=== PATIENT | male | born 2000 | race Caucasian/White ===

== ENCOUNTER 2024-06-29 11:46 | Emergency (ER) | payer SELFPAY ==
[2024-06-29] VITALS (26 sets, daily range): BP systolic 105–134; BP diastolic 50–73; PULSE 67–102; RESP 14–23; TEMP 36.4; O2SAT 94–100
--- NOTE | 2024-06-29 14:30 | ED.ALLEREA ---
HPI - Allergic Reaction General Chief complaint: Allergic Reaction Stated complaint: Allergic reaction x 9 days Time Seen by Provider: 06/29/24 14:23 History of Present Illness HPI narrative: Pt had sushi 9 days ago for first time and developed hivesw after that that have persisted. Pt has tried benadryl, then went to [facility] and got oral steroids, benadryl and pepcid with no improvement. Pt denies SOB or throat swelling. Related Data Allergies Allergy/AdvReac Type Severity Reaction Status Date / Time Unable to Assess Allergy Verified 06/29/24 12:18 Review of Systems Review of Systems: All systems reviewed & are unremarkable except as noted in HPI and below Exam Const: General: healthy appearing and no acute distress Nutritional Appearance: well nourished Orientation/consciousness: patient oriented x3 Limitations: no limitations HENMT: Head: normal to inspection Mouth: Yes Normal oral and palatal mucosa present Throat: posterior oropharynx normal Resp: Effort & Inspection: normal respiratory effort Auscultation: clear to auscultation bilaterally Cardio: Rate: regular rate Rhythm: regular rhythm GI: GI Palp: Yes Soft to palpation and No Tenderness to palpation present (GI) Auscultation: normal bowel sounds Back/Spine/Pelvis: Back: no CVA tenderness Skin: Other: hives over trunk neck and extremities Neuro: General: patient oriented x3, moves all extremities, no meningeal signs and no focal motor deficits Extrem: General: normal to inspection and no clubbing, cyanosis or edema Psych: Mental Status: mental status grossly normal Affect: normal affect Attitude: cooperative Course Vital Signs Vital signs: Vital Signs Temperature 97.6 F 06/29/24 11:58 Pulse Rate 102 H 06/29/24 11:58 Respiratory Rate 16 06/29/24 11:58 Blood Pressure 134/73 06/29/24 11:58 Pulse Oximetry 95 06/29/24 11:58 Oxygen Delivery Room Air 06/29/24 11:58 Temperature 97.6 F 06/29/24 11:58 Pulse Rate 75 06/29/24 17:00 Respiratory Rate 17 06/29/24 17:00 Blood Pressure 111/55 L 06/29/24 16:16 Pulse Oximetry 98 06/29/24 17:00 Oxygen Delivery Room Air 06/29/24 11:58 MDM - Allergic Reaction MDM Narrative Medical decision making narrative: Pt has hives for 9 days after eating sushi, pt has received oral meds at [facility] with no relief. will try IV benadryl, pepcid, and solumedrol and epi. hives are less erythematous but still present. Pt feels better. strange for urticaria to still be present 9 days after exposue. will send home on prednisone and benadryl but will talk to Dr Arrington to make sure he has follow up. No response from Dr Arrington. Will try going home on urticaria meds but discussed need for follow up if not resolved for further testing. Pt and friend understand. Discharge Plan Discharge Clinical Impression: Urticaria Patient Disposition: Home Condition: Improved Instructions: Antibiotic Form, Urticaria (ED) Patient Language: Albanian Prescriptions: New prednisone 10 mg tablet See Taper PO DAILY 15 Days Qty: 45 0RF Taper: Prednisone Taper from 50 mg;15 days 50 mg DAILY for 3 Days and 0 Hour 40 mg DAILY for 3 Days and 0 Hour 30 mg DAILY for 3 Days and 0 Hour 20 mg DAILY for 3 Days and 0 Hour 10 mg DAILY for 3 Days and 0 Hour famotidine [Pepcid] 20 mg tablet 20 mg PO BID Qty: 20 0RF Follow-up/Referrals: Sacha Arrington MD [Physician] - PHYSICIAN,DISPATCH CLERK [Non-Staff] -
[2024-06-29] MEDS: EPINEPHrine HCL INJ 1 MG/ML AMPUL 0.3 MG SUB-Q (14:38)
[2024-06-29] MEDS: diphenhydrAMINE HCl INJ 50 MG/ML VIAL IV PUSH (14:44)
[2024-06-29] MEDS: methylPREDNISolone SOD SUCC 125 MG VIAL IV PUSH (14:46)
[2024-06-29] MEDS: FAMOTIDINE 20 MG/2 ML VIAL IV PUSH (14:49)
--- OUTSIDE RECORDS SUMMARY | 2024-06-29 15:17 | XMS_ITS | Referral Summary ---
Author Organization [address] Address [address] [place] [id number] Care Team Providers Care Brick Baker Name Role Phone Unknown, Notinfile Primary Care Provider Unavail able Encounters Date Type Department Care Team Description 06/25/2024 11:45 AM CDT Office Visit [facility] at [address] [phone] Talya Sánchez PA Allergic reaction, initial encounter (Primary Dx) from Last 3 Months Allergies Active Allergy Reactions Criticality Noted Date Comments Shellfish Hives Medium 06/25/2024 Medications methylPREDNISol one (MEDROL DOSEPACK) 4 mg Dosepack Take as directed on package. 21 tablet 06/25/2024 07/02/19 25 Active Hospital, Clinic, or Other Facility Administered Medication Ordered Dose Route Frequency Start Date End Date Status methylPREDNISolone acetate (DEPO-medrol) injection 40 mgIndications:Allergic reaction, initial encounter 40 mg IM Once 06/25/2024 06/26/19 25 Ended famotidine (PEPCID) tablet 20 mgIndications:Allergic reaction, initial encounter 20 mg oral Once 06/25/2024 06/26/19 25 Ended diphenhydrAMINE (BENADRYL) tab/cap 25 mgIndications:Allergic reaction, initial encounter 25 mg oral Once 06/25/2024 06/26/19 25 Ended Active Problems No known active problems Social History Tobacco Use Types Packs/Day Years Used Date Smoking Tobacco: Never Assessed Sex and Gender Information Value Date Recorded Sex Assigned at Not on file Legal Sex Male 11:37 AM CDT Gender Identity Not on file Sexual Orientation Not on file Last Filed Vital Signs Vital Sign Reading Time Taken Comments Blood Pressure 117/74 06/25/2024 11:45 AM CDT Pulse 82 06/25/2024 11:45 AM CDT Temperature 37.4 C (99.4 F) 06/25/2024 11:45 AM CDT Respiratory Rate 20 06/25/2024 11:45 AM CDT Oxygen Saturation 98% 06/25/2024 11:45 AM CDT Inhaled Oxygen Concentration - - Weight 65.8 kg (145 lb) 06/25/2024 11:45 AM CDT Height - - Body Mass Index - - Plan of Treatment Not on file Care Teams Brick Baker Relationship Specialty Start Date End Date Unknown, Notinfile PCP - General 06/25/24
--- OUTSIDE RECORDS SUMMARY | 2024-06-29 15:17 | XMS_ITS | Clinical Summary ---
Author Organization [facility] [id number] [place] Address [address] [place] [id number] Care Team Providers Care Manager Investigations Name Role Phone Unknown, Notinfile Primary Care Provider Unavail able Allergies Active Allergy Reactions Criticality Noted Date [...] Ended Active Problems No known active problems Encounters Date Type Department Care Team Description 06/25/2024 11:45 AM CDT Office Visit [facility] at [address] [phone] Talya Sánchez PA Allergic reaction, initial encounter (Primary Dx) from Last 3 Months Social History Tobacco Use Types Packs/Day Years Used Date Smoking Tobacco: Never Assessed Sex and Gender Information Value Date Recorded Sex Assigned at Not on file Legal Sex Male 11:37 AM CDT Gender Identity Not on file Sexual Orientation Not on file Obstetrics History Last Filed Vital Signs Vital Sign Reading [...] Mass Index - - Plan of Treatment Health Maintenance Due Date Last Done Comments Depression Screening 2002 Hepatitis C Screening 2002 DTaP/Tdap/Td Vaccine (1 - Tdap) 2013 Varicella Vaccines (1 of 2 - 13+ 2-dose series) 06/21/2015 HPV Vaccines (1 - Male 3-dos e series) 2017 Meningococcal B Vaccine (1 o f 2 - Standard) 2018 Hepatitis B Screening 2020 Regular Well Visit/Exam 18-64 2020 Influenza Vaccine (Season Ended) 2024 Pneumococcal vaccine <65 Aged Out No longer eligible based on patient's age to complete this topic Care Teams Manager Investigations Relationship Specialty Start Date End Date Unknown, Notinfile PCP - General 06/25/24
== END 2024-06-29 17:16 | disposition home or self-care (01) ==
PROVIDERS: Emergency Provider Emergency Medicine
DX: L50.9 Urticaria, unspecified (principal)
CPT/HCPCS: 96372; 96374; 96375; 99284; J0171; J1200; J2919